=== PATIENT | male | born 1995 | race Caucasian/White ===

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

== ENCOUNTER 2019-05-02 00:14 | Emergency (ER) | payer BC, OTHER ==
[2019-05-02 00:19] VITALS: RESP 18
[2019-05-02] MEDS ORDERED: LIDOCAINE 1% INJ 10MG/ML (20 ML MDV) SQ ONE (00:56)
[2019-05-02] MEDS ORDERED: CEPHALEXIN 500MG STARTER PACK 4 CAP BTL PO STA (00:56)
--- NOTE | 2019-05-02 02:10 | ED ---
Wound/Laceration HPI - General Chief Complaint: Wound/Laceration Stated Complaint: Foot Laceration Time Seen by Provider: 05/02/19 00:33 Source: patient, RN notes reviewed, old records reviewed Mode of arrival: wheelchair Limitations: no limitations - History of Present Illness Initial Comments: Patient is a 21-year-old male process ranged from today with a right dorsum foot laceration. He reports his jumped into pond, and cut the dorsum of foot ON HIS ROCK. PATIENT reports tetanus is up-to-date. He denies any fevers or chills. Patient starts he initially tried to glue his wound together pretty continue to stay open. Patient states that he has no other complaints. He has full range of motion of the toes. - Related Data Home Medications Medication Instructions Recorded Confirmed Naproxen Sodium [Aleve] 440 mg PO Q12HR PRN 06/25/18 06/25/18 Previous Rx's Medication Instructions Recorded Cyclobenzaprine [Flexeril] 10 mg PO TID #15 tab 06/25/18 Cephalexin [Keflex] 500 mg PO Q6H #28 cap 05/02/19 Allergies Allergy/AdvReac Type Severity Reaction Status Date / Time No Known Allergies Allergy Verified 06/25/18 21:51 Review of Systems ROS Statement: Those systems with pertinent positive or pertinent negative responses have been documented in the HPI. ROS Other: All systems not noted in ROS Statement are negative. Past Medical History Past Medical History: Hypertension, Skin Disorder Additional Past Medical History / Comment(s): Cuong Mariza on upper right leg 10/2014 History of Any Multi-Drug Resistant Organisms: None Reported Past Surgical History: No Surgical Hx Reported Past Psychological History: Depression Smoking Status: Never smoker Past Alcohol Use History: None Reported Past Drug Use History: None Reported General Exam - General Exam Comments Initial Comments: Alert and oriented 24-year-old male. No distress. General: Well appearing, well nourished, in no distress. Oriented x 3, normal mood and affect . Ambulating without difficulty. Skin: Good turgor, no rash, unusual bruising or prominent lesions Hair: Normal texture and distribution. HEENT: Head: Normocephalic, atraumatic, no visible or palpable masses, depressions, or scaring. Eyes: Visual acuity intact, conjunctiva clear, sclera non-icteric, EOM intact, PERRL. Ears: EACs clear, TMs translucent & cone of light visualized. hearing intact. Nose: No external lesions, mucosa non-inflamed, septum and turbinates normal Mouth: Mucous membranes moist, no mucosal lesions. Teeth/Gums: No obvious caries or periodontal disease. No gingival inflammation or significant resorption. Pharynx: Mucosa non-inflamed, no tonsillar hypertrophy or exudate Neck: Supple, without lesions, bruits, or adenopathy, thyroid non-enlarged and non-tender Heart: No cardiomegaly or thrills; regular rate and rhythm, no murmur or gallop Lungs: Clear to auscultation and percussion Abdomen: Bowel sounds normal, no tenderness, organomegaly, masses, or hernia Back: Spine normal without deformity or tenderness, no CVA tenderness Extremities: No amputations or deformities, cyanosis, edema or varicosities, peripheral pulses intact Patient has a 3 cm laceration over the dorsum of the right foot involving the second third and fourth metatarpal. Musculoskeletal: Normal gait and station. No misalignment, asymmetry, crepitation, defects, tenderness, masses, effusions, decreased range of motion, instability, atrophy or abnormal strength or tone in the head, neck, spine, ribs, pelvis or extremities. Neurologic: CN 2-12 normal. Sensation to pain, touch, and proprioception normal. DTRs normal in upper and lower extremities. No pathologic reflexes. Psychiatric: Oriented X3, intact recent and remote memory, judgment and insight, normal mood and affect. Limitations: no limitations Course Vital Signs 05/02/19 05/02/19 00:15 02:14 Temperature 98.3 F 98.0 F Pulse Rate 78 70 Respiratory 18 18 Rate Blood Pressure 146/82 139/80 O2 Sat by Pulse 99 99 Oximetry Procedures - Laceration Laceration #1 Size (cm): 3 Description: linear Depth: simple, single layer Anesthetic Used: lidocaine 1% Anesthesia Technique: local infiltration Amount (mls): 5 Pre-repair: wound explored, irrigated extensively Type of Sutures: nylon Size of Sutures: 5-0 Number of Sutures: 6 Technique: simple, interrupted Patient Tolerated Procedure: well, no complications Medical Decision Making - Medical Decision Making 22-year-old male present with a superficial laceration over the dorsum of foot after jumping into a pond. He cut his foot on a rock. His tetanus is up-to-date. Patient wound was thoroughly irrigated, and closed with 6 sutures. Wound was well approximated. Discussed that this is likely to be infected due to the nature of the wound. I discussed the Patient should be started on antibiotics and given Keflex starter pack and ED. All questions answered. Return Measures were discussed. Disposition Clinical Impression: Laceration Disposition: HOME SELF-CARE Condition: Good Instructions (If sedation given, give patient instructions): Laceration (ED) Additional Instructions: Please return to the emergency room in 8-10 days to have sutures removed. Please leave wound covered for the first 24-48 hours and then leave open to air after that time. Please use clean soap and water to clean the suture area to prevent scabbing over the top of your sutures. Please watch for any signs of infection which may include but not limited to increased pain, swelling, redness, fever or chills. Please return to the emergency room if any signs of infection do occur. Please return to the emergency room for any other concerns or complications. Prescriptions: Cephalexin [Keflex] 500 mg PO Q6H #28 cap Is patient prescribed a controlled substance at d/c from ED?: No Referrals: None,Stated [Primary Care Provider] - 1-2 days Time of Disposition: 02:09
[2019-05-02 02:16] VITALS: BP 139/80; PULSE 70; TEMP 98
== END 2019-05-02 02:16 | disposition home or self-care (01) ==
LOC: EC 00:14
DX: S91.311A Laceration without foreign body, right foot, initial encounter (principal); W26.8XXA Contact with other sharp object(s), not elsewhere classified, initial encounter; Y93.39 Activity, other involving climbing, rappelling and jumping off; Y92.828 Other wilderness area as the place of occurrence of the external cause
CPT/HCPCS: 99283; 12002; J2001

== ENCOUNTER 2022-11-11 17:05 | Emergency (ER) | payer OTHER ==
--- NOTE | 2022-11-11 17:46 | ED ---
General Adult HPI <Dorene Yao - Last Filed: 11/11/22 17:44> <Deanne Brown - Last Filed: 11/11/22 22:43> - General Stated complaint: carbon monoxide exposure - History of Present Illness Initial comments: 27-year-old male presents the emergency department with a chief complaint of headache. Patient reports using a parking enforcement specialist and feeling nause ous and a headache and is concerned that he had a prolonged exposure to carbon monoxide. (Dorene Yao) 27-year-old male presents to the emergency room with concern for carbon monoxide poisoning. States that he was working on some windows in his basement. He was running a motorized saw that uses to cycle fuel. He states that he had the windows closed. His uncle was down in the basement with him for a shorter period of time. States that he started having nausea with headache. He worked on the windowpanes from 10 AM to 2 PM. He quit due to feeling bad. States that the windows are now open aerating the basement. He denies syncope. No confusion. He is a nonsmoker. No chest pain or shortness of breath. No other alleviating, precipitating or modifying factors (Deanne Brown) - Related Data Home Medications Medication Instructions Recorded Confirmed Naproxen Sodium [Aleve] 440 mg PO Q12HR PRN 06/25/18 06/25/18 Previous Rx's Medication Instructions Recorded Cyclobenzaprine [Flexeril] 10 mg PO TID #15 tab 06/25/18 Cephalexin [Keflex] 500 mg PO Q6H #28 cap 05/02/19 Allergies Allergy/AdvReac Type Severity Reaction Status Date / Time No Known Allergies Allergy Verified 11/11/22 17:54 Review of Systems ROS Other: All systems not noted in ROS Statement are negative. <Dorene Yao - Last Filed: 11/11/22 17:44> ROS Other: All systems not noted in ROS Statement are negative. <Deanne Brown - Last Filed: 11/11/22 22:43> ROS Statement: Those systems with pertinent positive or pertinent negative responses have been documented in the HPI. Past Medical History Past Medical History: Hypertension, Skin Disorder Additional Past Medical History / Comment(s): Mariza Hutchins on upper right leg 10/2014 History of Any Multi-Drug Resistant Organisms: None Reported Past Surgical History: No Surgical Hx Reported Past Psychological History: Depression Past Alcohol Use History: None Reported Past Drug Use History: None Reported <MaximilianDorene - Last Filed: 11/11/22 17:44> Course Vital Signs 11/11/22 11/11/22 17:52 20:29 Temperature 98.4 F Pulse Rate 106 H 90 Respiratory 20 18 Rate Blood Pressure 140/86 137/75 O2 Sat by Pulse 96 97 Oximetry Medical Decision Making - Lab Data Result diagrams: 11/11/22 18:37 11/11/22 18:37 <Deanne Brown - Last Filed: 11/11/22 22:43> - Medical Decision Making Was pt. sent in by a medical professional or institution? @ -[by , [facility], RADIOGRAPHER CARDIAC CATHETERIZATION, urgent care, hospital, or usp] Did you speak to anyone other than the patient for history? @ -[EMS, parent, family, police, friend?] Did you review nursing and triage notes? @ -[agree or disagree, why?] Were old charts reviewed? @ -[outside hosp., previous admissions, EMS record, old EKG, old radiological studies, urgent care reports/EKGs, usp records?] Differential Diagnosis? @ -[chest pain, altered mental status abdominal pain women, abdominal pain men, vaginal bleeding, weakness, fever, dyspnea, syncope, headache, dizziness, GI bleed, back pain, seizure] EKG interpreted by me (3pts min.)? @ -[none] X-rays interpreted by me (1pt min.)? @ -[none] CT interpreted by me (1pt min.)? @ -[none] U/S interpreted by me (1pt. min.)? @ -[none] What testing was considered but not performed? (CT, X-rays, U/S, labs)? Why? @ [CT, X-rays, U/S, labs? Why?] What meds were considered but not given? Why? @ -[none] Did you discuss the management of the patient with other professionals? @ -[professionals i.e. , PA, RADIOGRAPHER CARDIAC CATHETERIZATION, Lab, RT, Psych Nurse, Ballet [employer] Member, Director Trade, Teacher, Leather Crafter, case managers? Give summary] Did you reconcile home meds? @ -[none] Was smoking cessation discussed for >3mins.? @ -[none] Was critical care preformed (if so, how long)? @ -[none] Were there social determinants of health that impacted care today? How? (Homelessness, low income, unemployed, alcoholism, drug addiction, transportation, low edu. Level, literacy, decrease access to med. care, usp, rehab)? @ -[Homelessness, low income, unemployed, alcoholism, drug addiction, transportation, low edu. Level, literacy, decrease access to med. care, usp, rehab?] Was there de-escalation of care discussed even if they declined? (Discuss DNR or withdrawal of care, Hospice)? @ -[Discuss DNR or withdrawal of care, Hospice?] What co-morbidities impacted this encounter? (DM, HTN, Smoking, COPD, CAD, Cancer, CVA, Hep., AIDS, mental health diagnosis, sleep apnea, morbid obesity)? @ -[DM, HTN, Smoking, COPD, CAD, Cancer, CVA, Hep., AIDS, mental health diagnosis, sleep apnea, morbid obesity?] Was patient admitted / discharged? Upon arrival patient was placed into room 26. A thorough history and physical exam was performed. Patient placed on a nonrebreather. Laboratory studies are conducted. Carbon monoxide level is 12. Patient has remained on a nonrebreather for approximately 3 hours. These results are discussed with the patient. He has no neurologic sequelae at this time. Patient will be discharged home with strict return parameters. Instructed that his uncle should be evaluated. They need to air out the basement as it is not a safe place. Patient understood this. He has any new or worsening symptoms he needs to return to the emergency room. Patient agreeable and discharged home in stable condition Undiagnosed new problem with uncertain prognosis? @ -[none] Drug Therapy requiring intensive monitoring for toxicity (Heparin, Nitro, Insulin, Cardizem)? @ -[none] Were any procedures done? @ -[none] Diagnosis/symptom? @ -[default] Acute, or Chronic, or Acute on Chronic? @ -[default] Uncomplicated (without systemic symptoms) or Complicated (systemic symptoms)? @ -[default] Side effects of treatment? @ -[none] Exacerbation, Progression, or Severe Exacerbation] @ -[no] Poses a threat to life or bodily function? @ -[no] (Damer,Deanne A) - Lab Data Lab Results 11/11/22 11/11/22 11/11/22 Range/Units 18:37 18:37 18:37 WBC 8.8 (3.8-10.6) k/uL RBC 5.30 (4.30-5.90) m/uL Hgb 15.7 (13.0-17.5) gm/dL Hct 45.3 (39.0-53.0) % MCV 85.6 (80.0-100.0) fL MCH 29.6 (25.0-35.0) pg MCHC 34.6 (31.0-37.0) g/dL RDW 12.8 (11.5-15.5) % Plt Count 220 (150-450) k/uL MPV 8.4 Neutrophils % 66 % Lymphocytes % 24 % Monocytes % 5 % Eosinophils % 2 % Basophils % 1 % Neutrophils # 5.9 (1.3-7.7) k/uL Lymphocytes # 2.1 (1.0-4.8) k/uL Monocytes # 0.4 (0-1.0) k/uL Eosinophils # 0.2 (0-0.7) k/uL Basophils # 0.1 (0-0.2) k/uL Carbon Monoxide, Quant 12.0 H* (<10.0) % Sodium 139 (137-145) mmol/L Potassium 4.1 (3.5-5.1) mmol/L Chloride 106 (98-107) mmol/L Carbon Dioxide 27 (22-30) mmol/L Anion Gap 6 mmol/L BUN 23 H (9-20) mg/dL Creatinine 0.69 (0.66-1.25) mg/dL Est GFR (CKD-EPI)AfAm >90 (>60 ml/min/1.73 sqM) Est GFR (CKD-EPI)NonAf >90 (>60 ml/min/1.73 sqM) Glucose 116 H (74-99) mg/dL Calcium 8.7 (8.4-10.2) mg/dL Total Bilirubin 0.5 (0.2-1.3) mg/dL AST 33 (17-59) U/L ALT 31 (4-49) U/L Alkaline Phosphatase 50 (38-126) U/L Total Protein 7.2 (6.3-8.2) g/dL Albumin 4.4 (3.5-5.0) g/dL Disposition <Dorene Yao - Last Filed: 11/11/22 17:44> Is patient prescribed a controlled substance at d/c from ED?: No Time of Disposition: 20:09 <Deanne Brown - Last Filed: 11/11/22 22:43> Clinical Impression: Carbon monoxide poisoning Disposition: HOME SELF-CARE Condition: Stable Instructions (If sedation given, give patient instructions): Carbon Monoxide Poisoning (ED) Additional Instructions: Please make sure that the area is well aired out before you go back into the environment as it is not safe. Follow up with your doctor in 2-4 days and return for any new or worsening symptoms Referrals: Estela Mckeon DO [Primary Care Provider] - 1-2 days
[2022-11-11 17:54] VITALS: TEMP 98.4
[2022-11-11 18:52] LABS: Basophils # (A) 0.1 k/uL (0-0.2); Basophils % (A) 1 %; Eosinophils # (A) 0.2 k/uL (0-0.7); Eosinophils % (A) 2 %; HCT 45.3 % (39.0-53.0); HGB 15.7 gm/dL (13.0-17.5); Lymphocytes # (A) 2.1 k/uL (1.0-4.8); Lymphocytes % (A) 24 %; MCH 29.6 pg (25.0-35.0); MCHC 34.6 g/dL (31.0-37.0); MCV 85.6 fL (80.0-100.0); Mean Platelet Volume 8.4; Monocytes # (A) 0.4 k/uL (0-1.0); Monocytes % (A) 5 %; Neutrophils # (A) 5.9 k/uL (1.3-7.7); Neutrophils % (A) 66 %; Platelet Count 220 k/uL (150-450); RDW 12.8 % (11.5-15.5); WBC 8.8 k/uL (3.8-10.6)
[2022-11-11 18:58] LABS: ALT 31 U/L (4-49); AST 33 U/L (17-59); African American GFR (CKD) >90 (>60 ml/min/1.73 sqM); Albumin 4.4 g/dL (3.5-5.0); Alkaline Phosphatase 50 U/L (38-126); Anion Gap 6 mmol/L; Blood Urea Nitrogen 23 mg/dL (9-20); Calcium 8.7 mg/dL (8.4-10.2); Carbon Dioxide 27 mmol/L (22-30); Chloride 106 mmol/L (98-107); Glucose 116 mg/dL (74-99); Non-African American GFR(CKD) >90 (>60 ml/min/1.73 sqM); Potassium 4.1 mmol/L (3.5-5.1); Sodium 139 mmol/L (137-145); Total Bilirubin 0.5 mg/dL (0.2-1.3); Total Protein 7.2 g/dL (6.3-8.2)
[2022-11-11 20:30] VITALS: BP 137/75; PULSE 90; RESP 18
== END 2022-11-11 20:30 | disposition home or self-care (01) ==
LOC: EC 17:05
DX: T58.8X1A Toxic effect of carbon monoxide from other source, accidental (unintentional), initial encounter (principal); I10 Essential (primary) hypertension; F32.A Depression, unspecified
CPT/HCPCS: 36415; 80053; 82375; 85025; 99283